=== PATIENT | female | born 1975 | race Caucasian/White ===

== ENCOUNTER 2017-12-12 18:59 | Emergency (ER) | END 2017-12-12 21:26 | disposition home or self-care (01) ==

== ENCOUNTER 2017-12-13 18:08 | Emergency (ER) | END 2017-12-13 22:28 | disposition home or self-care (01) ==

== ENCOUNTER 2017-12-15 18:57 | Emergency (ER) | END 2017-12-15 22:42 | disposition home or self-care (01) ==